=== PATIENT | male | born 1955 | race Hispanic/Latino ===

== ENCOUNTER 2018-08-24 08:35 | Emergency (ER) | payer OTHER ==
[2018-08-24 08:39] VITALS: RESP 18; O2SAT 100; BMI 30.7
[2018-08-24] MEDS ORDERED: Sodium Chloride 0.9% 1,000 ML IV STA (09:01)
[2018-08-24] MEDS ORDERED: Morphine 4 MG/ML VIAL ONE (09:03)
[2018-08-24 09:24] LABS: BASO % 0.8 % (0.0-2.0); EOS # 0.1 K/uL (0.0-0.7); EOS % 1.6 % (0.0-4.0); HEMOGLOBIN 15.1 g/dL (12.0-18.0); LYMPH # 0.9 K/uL (1.0-4.3); LYMPH % 22.2 % (20.0-40.0); MEAN CELL VOLUME 97.1 fl (80.0-94.0); MEAN CORPUSCULAR HEMOGLOBIN 33.1 pg (27.0-31.0); MEAN CORPUSCULAR HGB CONC 34.1 g/dL (33.0-37.0); MEAN PLATELET VOLUME 9.9 fl (7.2-11.7); MONO # 0.5 K/uL (0.0-0.8); MONO % 12.9 % (0.0-10.0); NEUT # 2.6 K/uL (1.8-7.0); NEUT % 62.5 % (50.0-75.0); NRBC % 0.2 % (0.0-0.0); RBC 4.57 Mil/uL (4.40-5.90); RED CELL DISTRIBUTION WIDTH 13.7 % (11.5-14.5); WHITE BLOOD COUNT 4.1 K/uL (4.8-10.8)
[2018-08-24 09:35] LABS: VENOUS BLOOD GAS BASE EXCESS 3.9 mmol/L (0.0-2.0); VENOUS BLOOD GAS PCO2 45 mmHg (40-60); VENOUS BLOOD GAS PO2 26 mm/Hg (30-55); VENOUS BLOOD PH 7.42 (7.32-7.43)
[2018-08-24 09:35] LABS: ALB/GLOB RATIO 1.4 (1.0-2.1); ALBUMIN 4.5 g/dL (3.5-5.0); ALT/SGPT 35 U/L (21-72); AST/SGOT 27 U/L (17-59); BLOOD UREA NITROGEN 23 mg/dl (9-20); CALCIUM 9.1 mg/dL (8.4-10.2); GFR NON-AFRICAN AMERICAN > 60; INR 1.2; LIPASE 120 U/L (23-300); PROTHROMBIN TIME 13.7 Seconds (9.8-13.1)
[2018-08-24 09:37] LABS: PARTIAL THROMBOPLASTIN TIME 28.7 Seconds (25.6-37.1)
[2018-08-24] MEDS ORDERED: Iohexol 300 100 ML IJ ONE (09:53)
[2018-08-24] MEDS ORDERED: Sodium Chloride 0.9% 50 ML IV ONE (09:53)
--- NOTE | 2018-08-24 10:24 | ED PDOC ---
HPI: Abdomen Time Seen by Provider: 08/24/18 08:48 Chief Complaint (Nursing): Abdominal Pain Chief Complaint (Provider): Abdominal pain History Per: Patient History/Exam Limitations: no limitations Current Symptoms Are (Timing): Still Present Severity: Moderate Location Of Pain/Discomfort: RLQ Quality Of Discomfort: Sharp, "Pain" Additional History Per: Patient Additional Complaint(s): 63yo male with history of appendectomy, autoimmune hepatitis, comes to ER reporting sudden onset, severe right lower quadrant abdominal pain, which caused him to drop to the floor. Patient also reports associated vomiting, and states he has throat pain after vomiting. He reports the pain has slightly improved at this time. Patient has never had such pain before. He reports it is worse with movement. Otherwise, no diarrhea, constipation, or recent illnesses. No additional medical complaints. PMD: Dr. Mathis Past Medical History Reviewed: Historical Data, Nursing Documentation, Vital Signs Vital Signs: Last Vital Signs Temp 98.2 F 08/24/18 08:38 Pulse 49 L 08/24/18 08:38 Resp 18 08/24/18 08:38 BP 147/80 08/24/18 08:38 Pulse Ox 100 08/24/18 08:38 - Medical History PMH: Hepatitis - Surgical History Surgical History: Appendectomy - Family History Family History: States: No Known Family Hx - Social History Current smoker - smoking cessation education provided: No Alcohol: None Drugs: Denies - Allergies Allergies/Adverse Reactions: Allergies Allergy/AdvReac Type Severity Reaction Status Date / Time No Known Allergies Allergy Verified 08/24/18 08:57 Review of Systems ROS Statement: Except As Marked, All Systems Reviewed And Found Negative Constitutional: Negative for: Fever, Chills ENT: Positive for: Throat Pain Cardiovascular: Negative for: Chest Pain Respiratory: Negative for: Shortness of Breath Gastrointestinal: Positive for: Vomiting, Abdominal Pain Physical Exam - Reviewed Nursing Documentation Reviewed: Yes Vital Signs Reviewed: Yes - Physical Exam Appears: Positive for: Non-toxic, Uncomfortable Head Exam: Positive for: ATRAUMATIC, NORMAL INSPECTION, NORMOCEPHALIC Skin: Positive for: Normal Color Eye Exam: Positive for: Normal appearance Neck: Positive for: Supple Cardiovascular/Chest: Positive for: Regular Rate, Rhythm. Negative for: Tachycardia Respiratory: Positive for: Normal Breath Sounds. Negative for: Respiratory Distress Gastrointestinal/Abdominal: Positive for: Soft, Tenderness (diffuse abdominal tenderness, most in right lower quadrant ; negative cunningham's sign). Negative for: Mass, Guarding, Rebound Back: Positive for: Normal Inspection Extremity: Positive for: Normal ROM Neurological/Psych: Positive for: Awake, Alert - Laboratory Results Result Diagrams: 08/24/18 09:20 08/24/18 09:20 Lab Results: pO2 26 mm/Hg (30-55) L 08/24/18 09:13 VBG pH 7.42 (7.32-7.43) 08/24/18 09:13 VBG pCO2 45 mmHg (40-60) 08/24/18 09:13 VBG HCO3 26.5 mmol/L 08/24/18 09:13 VBG Total CO2 30.6 mmol/L (22-28) H 08/24/18 09:13 VBG O2 Sat (Calc) 55.0 % (40-65) 08/24/18 09:13 VBG Base Excess 3.9 mmol/L (0.0-2.0) H 08/24/18 09:13 VBG Potassium 3.5 mmol/L (3.6-5.2) L 08/24/18 09:13 Sodium 139.0 mmol/L (132-148) 08/24/18 09:13 Chloride 104.0 mmol/L (98-107) 08/24/18 09:13 Glucose 144 mg/dL (75-110) H 08/24/18 09:13 Lactate 3.5 mmol/L (0.7-2.1) H 08/24/18 09:13 FiO2 21.0 % 08/24/18 09:13 PT 13.7 Seconds (9.8-13.1) H 08/24/18 09:20 INR 1.2 08/24/18 09:20 APTT 28.7 Seconds (25.6-37.1) 08/24/18 09:20 Total Bilirubin 1.0 mg/dl (0.2-1.3) 08/24/18 09:20 AST 27 U/L (17-59) 08/24/18 09:20 ALT 35 U/L (21-72) 08/24/18 09:20 Alkaline Phosphatase 62 U/L (38-126) 08/24/18 09:20 Total Protein 7.8 G/DL (6.3-8.2) 08/24/18 09:20 Albumin 4.5 g/dL (3.5-5.0) 08/24/18 09:20 Globulin 3.3 gm/dL (2.2-3.9) 08/24/18 09:20 Albumin/Globulin Ratio 1.4 (1.0-2.1) 08/24/18 09:20 Lipase 120 U/L (23-300) 08/24/18 09:20 - ECG O2 Sat by Pulse Oximetry: 100 (RA) Pulse Ox Interpretation: Normal Medical Decision Making Medical Decision Makinyo male with sudden right lower quadrant pain, history of appendectomy -- Labs, CT Abdomen/Pelvis ordered -- Patient given IV fluids, morphine and zofran 12:[address] shows diverticulosis without signs of diverticulitis. Findings discussed with patient and his , [place]. Pt to follow up with GI, Dr. Senior in 3 months. Return parameters discussed. Scribe Attestation: Documented by Lyubov Suarez acting as a scribe for Chloé Stallworth MD. Provider Attestation: All medical record entries made by the Scribe were at my direction and personally dictated by me. I have reviewed the chart and agree that the record accurately reflects my personal performance of the history, physical exam, medical decision making, and the department course for this patient. I have also personally directed, reviewed, and agree with the discharge instructions and disposition. Disposition - Clinical Impression Clinical Impression: Abdominal discomfort - Patient ED Disposition Is Patient to be Admitted: Yes - Disposition Referrals: Lloyd Leach MD [Staff Provider] - Disposition: Routine/Home Disposition Time: 12:20 Condition: IMPROVED Additional Instructions: Follow up with periodicals library assistant to for colonoscopy and further workup. Return to the emergency department if symptoms worsen or if new symptoms develop. Instructions: Acute Abdomen (Belly Pain), Diverticulosis (DC) Forms: [employer] (Arabic) Print Language: SWEDISH
[2018-08-24 11:54] LABS: SQUAMOUS EPITHIAL < 1 /hpf (0-5); URINE BILIRUBIN NEGATIVE (NEGATIVE); URINE BLOOD MODERATE (NEGATIVE); URINE CLARITY CLEAR (Clear); URINE COLOR YELLOW (YELLOW); URINE GLUCOSE (UA) NEG (NEGATIVE); URINE LEUKOCYTE ESTERASE NEG Leu/uL (Negative); URINE PROTEIN NEGATIVE (NEGATIVE); URINE UROBILINOGEN 0.2-1.0 mg/dL (0.2-1.0)
--- NOTE | 2018-08-24 12:03 | CT ---
Date of service: 08/24/2018 PROCEDURE: CT Abdomen and Pelvis with contrast HISTORY: sharp RLQ pain COMPARISON: Limited abdomen ultrasound 06/28/2014 delete abdomen ultrasound 06/22/2013. TECHNIQUE: Following the intravenous administration of iodinated contrast material, a CT examination of the abdomen and pelvis was performed from the domes of the diaphragms to the symphysis pubis with reformatted datasets provided in axial, sagittal and coronal planes. Oral contrast was not administered as per referring physician request. Contrast dose: Omnipaque 300, 95 cc Radiation dose: Total exam DLP = 835.86 mGy-cm. This CT exam was performed using one or more of the following dose reduction techniques: Automated exposure control, adjustment of the mA and/or kV according to patient size, and/or use of iterative reconstruction technique. FINDINGS: LOWER THORAX: Unremarkable. LIVER: Borderline nodular changes at the superior periphery of the liver, particularly anteriorly. This may indicate an element of cirrhosis. No gross lesion or ductal dilatation. GALLBLADDER AND BILE DUCTS: Unremarkable. PANCREAS: Unremarkable. No gross lesion or ductal dilatation. SPLEEN: Unremarkable. ADRENALS: Unremarkable. No mass. KIDNEYS AND URETERS: Unremarkable. No hydronephrosis. No solid mass. VASCULATURE: Unremarkable. No aortic aneurysm. No aortic atherosclerotic calcification or mural plaque present. BOWEL: Left colonic diverticulosis concentrated at the sigmoid segment, without diverticulitis. No definite small or large bowel obstruction. No gross mural thickening. Stomach is decompressed. APPENDIX: Appendix not identified. Clinically correlate with potential prior appendectomy. No CT pattern to suggest appendicitis at this time. PERITONEUM: Unremarkable. No free fluid. No free air. LYMPH NODES: Unremarkable. No enlarged lymph nodes. BLADDER: Distended but thin walled urinary bladder identified. REPRODUCTIVE: Moderate prostate gland enlargement noted. BONES: No acute fracture. OTHER FINDINGS: None. IMPRESSION: No definitive acute abdominal or pelvic findings. The appendix is not identified however there is no CT evidence of appendicitis. Borderline cirrhotic liver. Liver otherwise unremarkable. Left colonic diverticulosis without diverticulitis. Moderate prostate gland enlargement.
[2018-08-24 13:19] VITALS: BP 114/70; PULSE 56; TEMP 98.8
== END 2018-08-24 13:17 | disposition home or self-care (01) ==
LOC: H.ER 08:35
DX: R10.9 Unspecified abdominal pain (principal)
CPT/HCPCS: 74177; 80053; 81003; 82803; 83690; 85025; 85610; 85730; 96374; 99284; J2405; J7030; Q9967